=== PATIENT | male | born 1945 | race Caucasian/White ===

== ENCOUNTER → 2019-05-12 | Outpatient (CLI) | payer MEDICARE, BC ==
[~2019-05-12] MED LIST: ASPI325T6 PO; ASPIRIN 32325 MG/TAB PO; CARDI-OMEGA1000 MG PO; COLACE 100100 MG/CAP PO; EYE DROPS; FERROUS SU325 MG/TAB PO; FLOMAX 0.40.4 MG/CAP PO; FOLIC ACID 40400 MCG PO; ICAPS AREDS1 TAB PO; LIPITOR 10MG10 MG PO; MULTIPLE VITAMI1 CAP PO; MULTIPLE VITAMI1 TA5 PO; NORCO 325 MG-7.1 TAB PO; ROXICODONE 55 MG/TAB PO; SYSTANE BALANCE10 M1 OP; TYLENOL 500MG500 MG PO; VITAMIN C500 MG PO; ZESTRIL 10MG10 MG PO; ZOCOR 10MG10 MG PO
== END ==
LOC: COL.RAD 13:08
DX: K62.89 Other specified diseases of anus and rectum (principal); I72.2 Aneurysm of renal artery; R19.02 Left upper quadrant abdominal swelling, mass and lump; N32.3 Diverticulum of bladder; N40.0 Benign prostatic hyperplasia without lower urinary tract symptoms
CPT/HCPCS: Q9967

== ENCOUNTER 2019-11-08 09:30 | Outpatient (RCR) | payer MEDICARE, BC ==
[~2019-11-08 09:30] MED LIST changes: +DICLOZOR1 EACH TP; +IRON 27 MG PO; +LUTEIN 15 MG-0.1 SGL PO; +NORCO 325 MG-51 TAB PO; +SYNTHROID 0.0.025 MG PO; +ZESTRIL 5MG5 MG PO; +ZYRTEC 10MG10 MG PO; +[UNRECOGNIZED DRUG - OTHER] PO
== END 2019-12-04 | disposition home or self-care (01) ==
LOC: WSC
DX: C25.7 Malignant neoplasm of other parts of pancreas (principal); K86.89 Other specified diseases of pancreas

== ENCOUNTER 2019-11-10 15:49 | Outpatient (CLI) | payer MEDICARE, BC ==
[~2019-11-10] VITALS: Ht 185.4 cm; Wt 95.1 kg
[2019-11-10 15:59] VITALS: BP 157/65; PULSE 58; TEMP 97.5
== END 2019-11-10 16:23 | disposition home or self-care (01) ==
LOC: EUO 15:49
DX: C25.1 Malignant neoplasm of body of pancreas (principal); D72.819 Decreased white blood cell count, unspecified
CPT/HCPCS: J1447

== ENCOUNTER 2020-07-02 09:20 | Outpatient (RCR) | payer MEDICARE, BC ==
[~2020-07-02] VITALS: Ht 185.4 cm; Wt 91.8 kg
[2020-07-02] VITALS (10 sets, daily range): BP systolic 114–159; BP diastolic 56–85; PULSE 61–80; TEMP 98–98.7
[~2020-07-02 09:20] MED LIST changes: -SYNTHROID 0.0.025 MG PO; +SYNTHROID0.05 MG/TA PO
[2020-07-02] MEDS ORDERED: CREON 60000 U-11 ECC PO (15:24)
[2020-07-02] MEDS ORDERED: GLUCOPHAGE500 MG/TAB PO (15:25)
[2020-07-03 11:17] VITALS: BP 126/66; PULSE 81; TEMP 98.9
== END 2020-07-03 11:22 | disposition home or self-care (01) ==
LOC: EUO 09:20
DX: Z01.89 Encounter for other specified special examinations (principal)
CPT/HCPCS: J1447; J1644; J7050; P9035

== ENCOUNTER 2020-07-06 09:55 | Outpatient (CLI) | payer MEDICARE, BC ==
[2020-07-06] VITALS (8 sets, daily range): BP systolic 144–743; BP diastolic 60–89; PULSE 61–69; TEMP 97.8–98.2
[~2020-07-06 09:55] MED LIST changes: +CREON 60000 U-11 ECC PO; +GLUCOPHAGE500 MG/TAB PO
--- NOTE | 2020-07-06 17:00 | NUR ---
Pt transusion of 2 units complete, no issues noted during.
== END 2020-07-06 17:00 | disposition home or self-care (01) ==
LOC: EUO 09:55 → MEDICAL 09:56 → EUO 17:00
DX: Z01.89 Encounter for other specified special examinations (principal)
CPT/HCPCS: OP; J1447; P9016

== ENCOUNTER 2020-07-31 10:00 | Outpatient (RCR) | payer MEDICARE, BC ==
[~2020-07-31] VITALS: Ht 185.4 cm; Wt 81.0 kg
[2020-07-31 10:24] VITALS: BP 125/76; PULSE 82; TEMP 98.3
[2020-07-31 10:55] VITALS: BP 118/70; PULSE 70; TEMP 98.5
[2020-07-31 11:10] VITALS: BP 110/62; PULSE 69; TEMP 98.5
[2020-07-31 11:40] VITALS: BP 113/71; PULSE 66; TEMP 98.5
[2020-07-31 12:40] VITALS: BP 127/73; PULSE 59; TEMP 98.5
[2020-07-31 13:13] VITALS: BP 145/75; PULSE 62; TEMP 98.5
== END 2020-07-31 13:15 | disposition home or self-care (01) ==
LOC: EUO 10:00 → EDSTATUS 10:00 → EUO 13:15
DX: Z95.9 Presence of cardiac and vascular implant and graft, unspecified (principal)
CPT/HCPCS: J1447; J1644; J7050; P9016

== ENCOUNTER 2020-08-26 11:28 | Outpatient (RCR) | payer MEDICARE, BC ==
[~2020-08-26] VITALS: Ht 185.4 cm; Wt 96.0 kg
[2020-08-26 13:40] VITALS: BP 136/62; PULSE 62; TEMP 98.6
[2020-08-26 13:55] VITALS: BP 136/60; PULSE 68; TEMP 98.7
[2020-08-26 14:10] VITALS: BP 139/63; PULSE 68; TEMP 98.5
[2020-08-26 14:40] VITALS: BP 144/67; PULSE 62; TEMP 98
[2020-08-26 15:29] VITALS: BP 139/67; PULSE 60; TEMP 98
--- NOTE | 2020-08-26 15:31 | NUR ---
INFUSION COMPLETED, PORT FLUSHED PER PROTOCOL AND REMOVED. PT DISCHARGED AMB. DROVE SELF TO HOSPITAL. NO C/O OR CONCERNS
== END 2020-08-30 17:23 | disposition home or self-care (01) ==
LOC: EUO 11:28
DX: C25.9 Malignant neoplasm of pancreas, unspecified (principal); D64.81 Anemia due to antineoplastic chemotherapy
CPT/HCPCS: J1644; J7050; P9016

== ENCOUNTER 2020-11-01 10:20 | Outpatient (RCR) | payer MEDICARE, BC ==
[~2020-11-01] VITALS: Ht 188 cm; Wt 90.5 kg
[~2020-11-01 10:20] MED LIST changes: +CREON 120000 U-1 ECC PO; -CREON 60000 U-11 ECC PO; +NORVASC2.5 MG PO; +PROSCAR 5MG5 MG PO; +STROMECTOL3 MG PO; +XELODA150 MG PO; -ZESTRIL 5MG5 MG PO; +ZOFRAN 4MG T4 MG/TAB PO
[2020-11-01 11:30] VITALS: BP 147/67; PULSE 61; TEMP 98.5
[2020-11-01 12:03] VITALS: BP 149/74; PULSE 54; TEMP 98.5
[2020-11-01 12:18] VITALS: BP 159/68; PULSE 54; TEMP 98.5
[2020-11-01 12:48] VITALS: BP 155/73; PULSE 61; TEMP 98.5
[2020-11-01 13:48] VITALS: BP 149/68; PULSE 61; TEMP 98.5
== END 2020-11-01 13:45 | disposition home or self-care (01) ==
LOC: EUO 10:20
DX: D69.6 Thrombocytopenia, unspecified (principal)
CPT/HCPCS: J1644; J7050; P9035

== ENCOUNTER 2020-11-22 09:50 | Outpatient (RCR) | payer MEDICARE, BC ==
[~2020-11-22] VITALS: Ht 188 cm; Wt 90.7 kg
[~2020-11-22 09:50] MED LIST changes: +NORVASC 5MG5 MG/TAB PO; -NORVASC2.5 MG PO; -SYNTHROID0.05 MG/TA PO; +SYNTHROID0.075 MG/T PO
[2020-11-22 10:53] VITALS: BP 129/68; PULSE 56; TEMP 98.6
[2020-11-22 11:55] VITALS: BP 157/73; PULSE 59; TEMP 98.5
[2020-11-22 12:10] VITALS: BP 152/80; PULSE 57; TEMP 98.6
[2020-11-22 12:40] VITALS: BP 145/77; PULSE 58; TEMP 98.7
[2020-11-22 13:22] VITALS: BP 139/80; PULSE 61; TEMP 98.7
--- NOTE | 2020-11-22 13:50 | NUR ---
PT TOLERATED TRANSFUSION WITH NO PROBLEM. PORT DEACCESSED PER PROTOCOL AND PT IS AMBULATORY TO EXIT WITH STEADY GAIT.
== END 2020-11-22 14:00 | disposition home or self-care (01) ==
LOC: EUO 09:50
DX: C25.1 Malignant neoplasm of body of pancreas (principal); D64.81 Anemia due to antineoplastic chemotherapy
CPT/HCPCS: J1644; J7050; P9016

== ENCOUNTER 2020-12-12 09:45 | Outpatient (RCR) | payer MEDICARE, BC ==
[~2020-12-12] VITALS: Ht 188 cm; Wt 86.9 kg
[2020-12-12 09:57] VITALS: BP 150/61; PULSE 55; TEMP 97.6
[2020-12-12 10:04] VITALS: BP 149/68; PULSE 57; TEMP 97.9
[2020-12-12 10:18] VITALS: BP 149/72; PULSE 57; TEMP 97.8
[2020-12-12 10:48] VITALS: BP 154/72; PULSE 56; TEMP 97.8
[2020-12-12 11:48] VITALS: BP 152/67; PULSE 40; TEMP 97.8
[2020-12-12 12:08] VITALS: BP 164/75; PULSE 52; TEMP 97.8
== END 2020-12-12 12:15 | disposition home or self-care (01) ==
LOC: EUO 09:45
DX: C25.1 Malignant neoplasm of body of pancreas (principal); D64.81 Anemia due to antineoplastic chemotherapy; Z95.9 Presence of cardiac and vascular implant and graft, unspecified
CPT/HCPCS: J7050; P9016

== ENCOUNTER 2020-12-27 11:10 | Outpatient (RCR) | payer MEDICARE, BC ==
[~2020-12-27] VITALS: Ht 188 cm; Wt 90.9 kg
[2020-12-27 13:50] VITALS: BP 161/70; PULSE 65; TEMP 98.2
[2020-12-27 14:05] VITALS: BP 159/58; PULSE 62; TEMP 98
[2020-12-27 14:35] VITALS: BP 158/56; PULSE 58; TEMP 98
[2020-12-27 15:20] VITALS: BP 163/61; PULSE 59; TEMP 98
== END 2020-12-27 15:30 | disposition home or self-care (01) ==
LOC: EUO 11:10
DX: D69.6 Thrombocytopenia, unspecified (principal); C25.1 Malignant neoplasm of body of pancreas
CPT/HCPCS: J7050; P9035

== ENCOUNTER 2021-01-10 13:00 | Outpatient (RCR) | payer MEDICARE, BC ==
[~2021-01-10] VITALS: Ht 188 cm; Wt 91.7 kg
[2021-01-10 13:33] VITALS: BP 156/73; PULSE 66; TEMP 98.7
[2021-01-10 13:50] VITALS: BP 158/80; PULSE 62; TEMP 98.7
[2021-01-10 14:05] VITALS: BP 162/77; PULSE 62; TEMP 98.5
[2021-01-10 14:35] VITALS: BP 159/73; PULSE 63; TEMP 97.8
[2021-01-10 15:35] VITALS: BP 161/77; PULSE 62; TEMP 97.8
[2021-01-10 16:00] VITALS: BP 175/77; PULSE 60; TEMP 97.8
--- NOTE | 2021-01-10 16:00 | NUR ---
Pt tolerated transfusion without issue. PAC DC'd after being flushed per protocol. Pt ambulates out with steady gait.
== END 2021-01-10 16:00 | disposition home or self-care (01) ==
LOC: EUO 13:00 → COL.CAR 16:00
DX: C25.1 Malignant neoplasm of body of pancreas (principal); D69.6 Thrombocytopenia, unspecified
CPT/HCPCS: J1644; J7050; P9016

== ENCOUNTER 2021-02-06 12:31 | Outpatient (RCR) | payer MEDICARE, BC ==
[2021-02-06] VITALS (9 sets, daily range): BP systolic 156–197; BP diastolic 65–90; PULSE 55–66; TEMP 97.8–98.8
--- NOTE | 2021-02-06 19:00 | NUR ---
pt up to b/r, port flushed per protocol and needle removed, pt waits for ride
== END 2021-02-06 19:20 | disposition home or self-care (01) ==
LOC: EUO 12:31
DX: D64.81 Anemia due to antineoplastic chemotherapy (principal)
CPT/HCPCS: J1644; P9016

== ENCOUNTER → 2021-02-07 | Outpatient (CLI) | payer MEDICARE, BC | LOC: COL.RAD 07:26 | DX: R07.9 Chest pain, unspecified (principal); R79.89 Other specified abnormal findings of blood chemistry; R06.02 Shortness of breath | CPT/HCPCS: A9540; A9567; J1644 ==

== ENCOUNTER 2021-04-03 07:45 | Outpatient (RCR) | payer MEDICARE, BC | END 2021-05-27 | disposition home or self-care (01) | LOC: PT.GENESIS | DX: M54.2 Cervicalgia (principal) ==